=== PATIENT | male | born 1990 | race Caucasian/White ===

== ENCOUNTER 2021-02-04 15:10 | Emergency (ER) | payer BC, SELFPAY ==
[2021-02-04 15:35] VITALS: BP 123/80; PULSE 72; RESP 19; TEMP 36.8; O2SAT 100; BMI 29.2
--- NOTE | 2021-02-04 15:46 | HMH.EDUTC ---
[facility] [place] Impression: Dizziness Disposition: Home, Self-Care Condition on Discharge: Good Instructions: Vertigo, Meclizine, DI for Nausea -- Adult Additional Instructions: Take medication as prescribed Take care while getting use to medication as this medication may make you drowsy Follow up with your Family Doctor if symptoms return or there is no improvement Return if needed Straight to ER if any life threatening symptoms, changes in behavior or worse headache of your life Prescriptions: Meclizine HCl [Meclizine 25mg Tab] 25 mg PO TID PRN #30 tab PRN Reason: Dizziness Transmission Status: Pending to [facility] methylPREDNISolone [Medrol 4mg tab] 4 mg PO DIRECTED #21 tab Transmission Status: Pending to [facility] Referrals: Monico Bateman MD [Primary Care Provider] - As needed Forms: Work/School Release Time of Disposition: 16:28 Medical Decision Making - Jayce Inquiry Pt receiving controlled substance: No Jayce was queried for this patient: No Vital Signs: 02/04/21 15:35 Temperature 98.3 F Temperature Source Oral Pulse Rate [Right Brachial] 72 Respiratory Rate 19 Blood Pressure [Right Arm] 123/80 Blood Pressure Mean [Right Arm] 94 Blood Pressure Source [Right Arm] Automatic Cuff Blood Pressure Position [Right Arm] Sitting 02 Sat by Pulse Oximetry 100 Oxygen Delivery Method Room Air Orders (Tests/Meds): ED MEDICATIONS Discontinued Medications Generic Name Dose Route Start Last Admin Trade Name Freq PRN Reason Stop Dose Admin Meclizine HCl 25 mg 02/04/21 15:51 02/04/21 15:56 Meclizine 25mg Tablet PO 02/04/21 15:52 25 mg ONCE ONE Administration Medical Decision Narrative: Patient states that he feels much better after Meclinzine Dizziness and nausea now gone [facility] [place] - General Stated complaint: light head,dizzy,vomiting Time Seen by Provider: 02/04/21 15:46 Mode of Arrival: Ambulatory Source of Information: Patient Limitations: No Limitations Description of Symptoms (Recalled from Triage Doc. by RN): PATIENT C/O NAUSEA, VOMITING, AND DIZZINESS SINCE YESTERDAY HEENT Symptoms (Recalled from RN notes): No Resp Symptoms (Recalled from RN notes): No Skin Symptoms (Recalled from RN notes): No MS Symptoms (Recalled from RN notes): No Functional Status (Recalled from RN notes): WNL - History of Present Illness Provider Complaint: Patient states that he went to [facility] this weekend and has been a little drainage State that yesterday he noticed when he would move quickly or look up he would get dizzy and it made him have nausea. State that since when he moves too quickly in standing or turning his head he gets dizzy and makes him feel nausous and like he is going to vomit State that he was sent home from work yesterday due to and today he was still having it on and off so he came in to get checked - Related Data Previous Rx's Medication Instructions Recorded Meclizine HCl [Meclizine 25mg Tab] 25 mg PO TID PRN #30 tab 02/04/21 methylPREDNISolone [Medrol 4mg 4 mg PO DIRECTED #21 tab 02/04/21 tab] Allergies Allergy/AdvReac Type Severity Reaction Status Date / Time No Known Allergies Allergy Verified 06/08/19 23:52 - Worker's Comp Is this a Worker's Comp case?: No [facility] History - Hepatitis A Screen Drug use history?: No High risk sexual behaviors?: No History of sexually transmitted infection?: No Currently employed?: No Childcare worker?: No Do you have indoor plumbing?: Yes Do you have electricity?: Yes Attestation statement:: This patient has been screened for Hepatitis A risk factors. I have reviewed the patient's past medical history: Yes Medical History: Denies:: Cancer, Diabetes Mellitus Type 1, Diabetes Mellitus Type 2, MRSA Amputation: No Fractures: No - Social History Smoking Status: Never smoker # Packs/Day (cigarettes): 1 Alcohol Intake: never Alcohol Intake Frequency:: a few ti
[2021-02-04 16:33] VITALS: BP 123/80; PULSE 72; RESP 19; TEMP 36.8; O2SAT 100
== END 2021-02-04 16:36 | disposition home or self-care (01) ==
PROVIDERS: Emergency Provider Nurse Practitioner; PCP Internal Medicine Adolescent Medicine
DX: R42 Dizziness and giddiness (principal); R11.2 Nausea with vomiting, unspecified
CPT/HCPCS: 99202; G0463

== ENCOUNTER → 2021-07-30 10:03 | Outpatient (CLI) | payer SELFPAY | LOC: HMH.CTC 10:03 | PROVIDERS: PCP Internal Medicine Adolescent Medicine; Visit Provider Nurse Practitioner | DX: U07.1 COVID-19 (principal) | CPT/HCPCS: C9803; U0003; U0005 ==

== ENCOUNTER 2023-08-06 11:40 | Emergency (ER) | payer SELFPAY ==
[2023-08-06 12:25] VITALS: BP 134/76; PULSE 70; RESP 19; TEMP 37.1; O2SAT 98; BMI 31.3
--- NOTE | 2023-08-06 12:28 | EXP.UTC ---
Discharge Plan Disposition Patient Disposition: Home, Self-Care Condition: Good Prescriptions Prescriptions: New methylprednisolone 4 mg Tablets,Dose Pack 4 mg PO DIRECTED Qty: 21 0RF xhktqhuhhkrkhzk-dyrejinxx-QQ [Bromfed DM] 2-30-10 mg/5 mL Syrup 5 ml PO Q6H PRN (Reason: Cough) Qty: 240 0RF amoxicillin-pot clavulanate 875-125 mg Tablet 1 tab PO Q12H Qty: 20 0RF ciprofloxacin-dexamethasone 0.3-0.1 % Drops,Suspension 2 drp Ear-Left BID 7 Days Qty: 1 0RF No Action trazodone 50 mg tablet 50 mg PO HS Patient Comments: TAKE 1 TABLET 1 TIME EACH DAY AT BEDTIME fluoxetine 20 mg capsule 20 mg PO DAILY Patient Comments: TAKE 1 CAPSULE 1 TIME EACH DAY Referrals Follow up/Referrals: Jocelyn Murphy APRN [Primary Care Provider] - See instructions Activity Restrictions/Add. Instructions Additional Instructions/Restrictions: Drink plenty of fluids. Take tylenol or ibuprofen for pain or fever. Take the medications as directed. Follow up with your regular doctor. GO TO THE ER FOR ANY WORSENING SYMPTOMS Clinical Impressions Clinical Impression: Acute otitis media of left ear with perforated tympanic membrane Instructions Patient Instructions: How to Instill Ear Drops, Middle Ear Infection, DI for Tympanic Membrane Perforation-Adult Discharge ED Provider: Monico Colon [facility] General Stated complaint: possible left ear infection Time Seen by Provider: 08/06/23 12:28 History of Present Illness Provider Complaint: He states that he has had left ear pain for the past 3 days. He states that he has had discharge from the ear since yesterday. He has a history of getting ear infections. Related Data Home Medications Medication Instructions Recorded Confirmed fluoxetine 20 mg capsule 20 mg PO DAILY Depression 08/06/23 08/06/23 trazodone 50 mg tablet 50 mg PO HS Insomnia 08/06/23 08/06/23 Previous Rx's Medication Instructions Recorded amoxicillin 875 mg-potassium 1 tab PO Q12H #20 tabs 08/06/23 clavulanate 125 mg tablet xnhfjztiuihthht-nvhggancbngxmvo-ZO 5 ml PO Q6H PRN Cough #240 mL 08/06/23 2 mg-30 mg-10 mg/5 mL oral syrup (Bromfed DM) ciprofloxacin 0.3 %-dexamethasone 2 drp Ear-Left BID 7 days #1 ea 08/06/23 0.1 % ear drops,suspension methylprednisolone 4 mg tablets in 4 mg PO DIRECTED #21 tabs 08/06/23 a dose pack Allergies Allergy/AdvReac Type Severity Reaction Status Date / Time No Known Allergies Allergy Verified 06/08/19 23:52 [facility] Disclaimer: The information contained in this section may have been updated after the patient was seen, as this information can be updated by other users. Medical History (Updated 08/06/23 @ 12:38 by Monico Colon APRN) Depression Social History Smoking Status: Never smoker alcohol intake: never current occupational status: other Travel in the last 8 weeks: None household members: spouse ROS Obtained: Yes All systems reviewed & no additional complaints except as documented Constitutional Constitutional: Reports poor appetite Eyes Eyes: Reports system reviewed and no additional complaints, except as documented ENT Ears, Nose, Mouth, and Throat: Reports as per HPI Cardiovascular Cardiovascular: Reports system reviewed and no additional complaints, except as documented and Denies chest pain Respiratory Respiratory: Denies shortness of breath, Denies chest congestion, Reports cough, Denies stridor and Denies wheezing Gastrointestinal Gastrointestingal: Reports system reviewed and no additional complaints, except as documented; Denies abdominal pain, diarrhea or vomiting Musculoskeletal Musculoskeletal: Reports system reviewed and no additional complaints, except as documented and Denies arthralgias Integumentary/Breasts Skin/Breast: Reports system reviewed and no additional complaints, except as documented and Denies rash Neurologic Neurologic: Denies paresthesias
[2023-08-06 12:35] VITALS: BP 134/76; PULSE 70; RESP 19; TEMP 37.1; O2SAT 98
== END 2023-08-06 12:38 | disposition home or self-care (01) ==
PROVIDERS: Emergency Provider Nurse Practitioner Family; PCP Nurse Practitioner
DX: H66.012 Acute suppurative otitis media with spontaneous rupture of ear drum, left ear (principal)
CPT/HCPCS: 99212; 99214; G0463